=== PATIENT | male | born 1990 | race Caucasian/White ===

== ENCOUNTER 2022-03-27 21:52 | Emergency (ER) | payer OTHER ==
[2022-03-27 22:00] VITALS: BMI 32.8
[2022-03-27] MEDS ORDERED: ACETAMINOPHEN 1000 MG/100 ML BAG IVPB ONE (22:35)
[2022-03-27] MEDS ORDERED: SODIUM CHLORIDE 0.9% 500 ML INFUS.BAG IV ONE (22:35)
[2022-03-27] MEDS ORDERED: METOCLOPRAMIDE HCL INJECTION 10 MG/2 ML VIAL IVPUSH ONE (22:36)
[2022-03-27] MEDS ORDERED: METOCLOPRAMIDE HCL INJECTION 10 MG/2 ML VIAL ONE (23:05)
[2022-03-27] MEDS ORDERED: ACETAMINOPHEN INJECTION 100 ML IVPB ONE (23:05)
[2022-03-27 23:43] LABS: BASO % 0.3 % (0-2.0); HEMATOCRIT 45.9 % (35.4-49); HEMOGLOBIN 16.1 GM/dL (11.7-16.9); LYMPH % 6.7 % (8-40); MCH 28.1 pg (25.7-33.7); MCHC 35.1 g/dl (32.0-35.9); MEAN CELL VOLUME 80.2 fl (80-96); MEAN PLT VOLUME 8.4 fl (7.5-11.1); MONO % 8.7 % (3.8-10.2); NEUT % 84.3 % (42.8-82.8); PLATELET COUNT 253 10^3/uL (134-434); RBC 5.72 M/mm3 (4.00-5.60); RDW 13.6 % (11.9-15.9); WHITE BLOOD COUNT 10.5 K/mm3 (4.0-10.0)
[2022-03-27 23:45] LABS: CALCIUM 9.4 mg/dL (8.5-10.1)
[2022-03-27 23:46] LABS: ALBUMIN 4.4 g/dl (3.4-5.0); BLOOD UREA NITROGEN 12.8 mg/dL (7-18)
[2022-03-27 23:49] LABS: CREATININE 1.1 mg/dL (0.55-1.3)
[2022-03-27 23:50] LABS: TOT PROT 8.8 g/dl (6.4-8.2)
[2022-03-27 23:51] LABS: BILIRUBIN,TOTAL 0.6 mg/dL (0.2-1)
[2022-03-28 01:35] VITALS: BP 156/86; PULSE 85; TEMP 97.8
== END 2022-03-28 01:50 | disposition home or self-care (01) ==
LOC: JER 21:52
PROC: 3E0333Z Introduction of Anti-inflammatory into Peripheral Vein, Percutaneous Approach (ICD-10-PCS; principal; 2022-03-27)
PROC: 3E033GC Introduction of Other Therapeutic Substance into Peripheral Vein, Percutaneous Approach (ICD-10-PCS; 2022-03-27)
DX: U07.1 COVID-19 (principal)
CPT/HCPCS: 0241U-QW; 36415; 80053; 85025; 93005; 93010; 99284-25

== ENCOUNTER 2023-01-23 20:39 | Emergency (ER) | payer OTHER ==
[2023-01-23 20:48] VITALS: BP 169/99; PULSE 97; RESP 18; TEMP 98; BMI 33.9
[2023-01-23] MEDS ORDERED: guaiFENesin/D-METHORPHAN HB 10 ML UNIT-DOSE CUPS PO ONE (21:29)
[2023-01-23] MEDS ORDERED: DEXAMETHASONE SOD PHOSPHATE 10 MG/1 ML VIAL PO ONE (21:30)
[2023-01-23] MEDS ORDERED: DEXAMETHASONE SOD PHOSPHATE 10 MG/1 ML VIAL ONE (21:31)
[2023-01-23] MEDS ORDERED: guaiFENesin/D-METHORPHAN HB 10 ML UNIT-DOSE CUPS ONE (21:31)
== END 2023-01-23 21:50 | disposition home or self-care (01) ==
LOC: JERFT 20:39 → JER 20:39 → JERFT 21:50
DX: J06.9 Acute upper respiratory infection, unspecified (principal); B97.89 Other viral agents as the cause of diseases classified elsewhere; J01.10 Acute frontal sinusitis, unspecified; R05.9 Cough, unspecified; R09.81 Nasal congestion; H92.03 Otalgia, bilateral
CPT/HCPCS: 99283-25; J1100

== ENCOUNTER 2024-06-03 16:32 | Emergency (ER) | payer OTHER ==
[2024-06-03 16:54] VITALS: BP 152/96; PULSE 107; RESP 16; TEMP 101.7; BMI 37.1
[2024-06-03] MEDS ORDERED: ONDANSETRON *ODT* 4 MG TABLET ONE (17:38)
[2024-06-03] MEDS ORDERED: ACETAMINOPHEN 325 MG TABLET (FP) ONE (17:39)
[2024-06-03] MEDS: ONDANSETRON 4 MG TABLET PO ONE (17:43)
[2024-06-03] MEDS: ACETAMINOPHEN 500 MG TABLET (FP) PO ONE (17:43)
[2024-06-03 18:58] LABS: URINE APPEARANCE CLEAR; URINE BILIRUBIN NEGATIVE (NEGATIVE); URINE COLOR YELLOW; URINE GLUCOSE (UA) NEGATIVE (NEGATIVE); URINE KETONE 1+ (NEGATIVE); URINE LEUK ESTERASE NEGATIVE (NEGATIVE); URINE NITRITE NEGATIVE (NEGATIVE); URINE PROTEIN TRACE (NEGATIVE)
== END 2024-06-03 18:45 | disposition home or self-care (01) ==
LOC: JER 16:32
DX: U07.1 COVID-19 (principal); R11.2 Nausea with vomiting, unspecified; R19.7 Diarrhea, unspecified; R05.9 Cough, unspecified; R06.00 Dyspnea, unspecified; R50.9 Fever, unspecified; R63.0 Anorexia
CPT/HCPCS: 0241U-QW; 81003; 87086; 99283-25